=== PATIENT | female | born 2000 | race Caucasian/White ===

== ENCOUNTER 2019-04-11 23:03 | Emergency (ER) | payer OTHER ==
[~2019-04-11] VITALS: Ht 149.9 cm; Wt 59.0 kg
[2019-04-11 23:05] VITALS: BP 130/90
--- NOTE | 2019-04-11 23:08 | NUR ---
TO LOBBY A/W BED AMBULATORY
--- NOTE | 2019-04-11 23:48 | NUR ---
18 Y/O FEMALE PRESENTS WITH LEFT EAR PAIN BEGINNING ON THURSDAY. PT REPORTS SHE HAD A SORE THROAT AND COUGH THAT BEGAN LAST WEEK. EAR PAIN CAUSING MILD HEARING LOSS. NO DRAINAGE NOTED AT EAR. SKIN IN TACT. PT REPORTS MILD HEADACHE, 5/10. DENIES SOB/CP. RESP EVEN AND UNLABORED. LUNG SOUNDS CLEAR IN ALL LOBES. AAOX4. CAP REFILL <3 NO PMH NKA
[2019-04-12 00:06] VITALS: BP 125/82
--- NOTE | 2019-04-12 00:07 | NUR ---
Patient discharged with v/s stable. Written and verbal after care instructions given and explained. Patient alert, oriented and verbalized understanding of instructions. Ambulatory with steady gait. All questions addressed prior to discharge. ID band removed. Patient advised to follow up with PMD. Rx of ibuprofen, promethazine, tramadol, acetic acid otic solution given. Patient educated on indication of medication including possible reaction and side effects. Opportunity to ask questions provided and answered.
== END 2019-04-12 00:06 | disposition home or self-care (01) ==
LOC: MED 23:03
DX: J06.9 Acute upper respiratory infection, unspecified (principal); H66.92 Otitis media, unspecified, left ear
CPT/HCPCS: 99283

== ENCOUNTER 2021-06-27 17:41 | Emergency (ER) | payer OTHER ==
[~2021-06-27] VITALS: Ht 149.9 cm; Wt 65.3 kg
[2021-06-27 17:56] VITALS: BP 115/45
--- NOTE | 2021-06-27 18:05 | NUR ---
PT TAKEN TO X RAY.
[2021-06-27 18:14] VITALS: BP 115/45
--- NOTE | 2021-06-27 18:16 | NUR ---
20YO F C/O WORSENING SORE THROAT X 3 DAYS. PT STATES SHE IS UNABLE TO SWALLOW LIQUIDS OR SOLIDS AND REPORTS PAIN OF 10/10. ALSO COMPLAINS OF HEADACHE. DENIES FEVER, COUGH, RUNNY NOSE, N/V/D. TOOK TYLENOL 2 HOURS AGO. IN ED, VSS. CLEAR BREATH SOUNDS. ERMD MADE AWARE OF PT STATUS. PMH: NONE MEDS: NONE NKA
[2021-06-27] MEDS ORDERED: PENICILLIN G BENZATHINE L-A 1.2 MU/2 ML SYR IM ONE (19:40)
[2021-06-27] MEDS ORDERED: KETOROLAC 60 MG/2 ML VIAL IM ONE (19:40)
[2021-06-27] MEDS ORDERED: IBUP-2213 PO (19:52)
[2021-06-27] MEDS ORDERED: PRED20TA5 PO (19:52)
--- NOTE | 2021-06-27 20:07 | NUR ---
Patient discharged with v/s stable. Written and verbal after care instructions given and explained. Patient alert, oriented and verbalized understanding of instructions. Ambulatory with steady gait. All questions addressed prior to discharge. ID band removed. Patient advised to follow up with PMD. Rx of MOTRIN AND PREDNISONE given. Patient educated on indication of medication including possible reaction and side effects. Opportunity to ask questions provided and answered.
== END 2021-06-27 20:07 | disposition home or self-care (01) ==
LOC: MED 17:41
DX: J02.0 Streptococcal pharyngitis (principal)
CPT/HCPCS: 71045; 96372; 99284; J0561; J1885

== ENCOUNTER 2022-01-15 17:58 | Emergency (ER) | payer OTHER ==
[~2022-01-15] VITALS: Ht 149.9 cm; Wt 63.6 kg
[~2022-01-15 17:58] MED LIST: IBUP-2213 PO; PRED20TA5 PO
[2022-01-15 18:08] VITALS: BP 105/61
--- NOTE | 2022-01-15 18:18 | NUR ---
PT AMB TO BED 8.HANDED ON URINE CUP.
[2022-01-15] MEDS ORDERED: ACETAMINOPHEN 650 MG/20.3 ML UDC PO ONE (18:55)
--- NOTE | 2022-01-15 18:55 | NUR ---
21YO FEMALE PT C/O INCREASED PRESSURED PELVIC PAIN XTODAY. STATES INITIAL PAIN [id number]. PAIN CONSTANT BUT AT MOST ON MOVEMENT OR TOUCH. ABDOMEN FIRM, ROUND AND NON TENDER. LMP 09/13/21 . NOTES "A MOVING BALL" BEFORE URINATING. DENIES TAKING MEDICATION FOR PAIN. N/V/D, CHEST PAIN, SOB, FEVER OR CHILLS. PT AAOX4, RESPIRATIONS EVEN AND UNLABORED. HOB POSITIONED PER COMFORT. HX:DENIES NKA
--- NOTE | 2022-01-15 19:00 | NUR ---
US AT BEDSIDE
--- NOTE | 2022-01-15 19:06 | NUR ---
MD JIMENEZ AT BEDSIDE FOR EVALUATION
[2022-01-15 19:19] LABS: BASOPHILS % (AUTO) 0.4 % (0.0-2.0); EOSINOPHILS # (AUTO) 0.3 K/uL (0-0.4); EOSINOPHILS % (AUTO) 3.1 % (0.0-4.0); HEMATOCRIT 35.2 % (36-48); HEMOGLOBIN 12.2 g/dL (12.0-16.0); LYMPHOCYTES # (AUTO) 2.5 K/uL (2.5-16.5); LYMPHOCYTES % (AUTO) 23.4 % (20.5-51.1); MEAN CORPUSCULAR HEMOGLOBIN 32 pg (27-31); MEAN CORPUSCULAR HGB CONC 35 g/dL (33-37); MEAN CORPUSCULAR VOLUME 90.8 fL (80-94); MONOCYTES # (AUTO) 0.7 K/uL (0.8-1.0); MONOCYTES % (AUTO) 6.7 % (1.7-9.3); NEUTROPHILS # (AUTO) 7.1 K/uL (1.8-7.7); NEUTROPHILS % (AUTO) 66.4 % (42.2-75.2); PLATELET COUNT (AUTO) 288 K/uL (140-450); RED BLOOD CELL COUNT(AUTO) 3.87 MIL/uL (4.20-5.40); WHITE BLOOD COUNT (AUTO) 10.7 K/uL (4.8-10.8)
[2022-01-15 19:39] LABS: APPEARANCE,URINE SL CLOUDY (CLEAR); BILIRUBIN,URINE NEGATIVE (NEGATIVE); BLOOD, URINE NEGATIVE (NEGATIVE); COLOR,URINE YELLOW (YELLOW); LEUKOCYTE ESTERASE ,URINE NEGATIVE (NEGATIVE); NITRITE, URINE NEGATIVE (NEGATIVE); PH,URINE 6.5 (5.0-9.0); UGLUCOSE NEGATIVE (NEGATIVE)
--- NOTE | 2022-01-15 19:40 | NUR ---
REPORT GIVEN TO JORGITO ESCOBAR. TRANSFER OF CARE AT THIS TIME
[2022-01-15 19:42] LABS: CARBON DIOXIDE 27.1 mmol/L (21-32); CREATININE 0.6 mg/dL (0.6-1.3); POTASSIUM 3.1 mmol/L (3.5-5.1); TOTAL BILIRUBIN 0.2 mg/dL (0.0-1.0)
[2022-01-15] MEDS ORDERED: ACET-10509 PO (19:57)
[2022-01-15] MEDS ORDERED: ONDA-188 PO (19:57)
[2022-01-15] MEDS ORDERED: POTASSIUM CHLORIDE 10 MEQ TABER PO ONE (20:00)
[2022-01-15 20:31] VITALS: BP 105/61
--- NOTE | 2022-01-15 20:31 | NUR ---
Patient discharged with v/s stable. Written and verbal after care instructions given and explained. Patient verbalized understanding. Ambulatory with steady gait. All questions addressed prior to discharge. Advised to follow up with PMD.
--- NOTE | 2022-01-15 20:31 | NUR ---
Chart checked and completed.
== END 2022-01-15 20:31 | disposition home or self-care (01) ==
LOC: MED 17:58
DX: O26.892 Other specified pregnancy related conditions, second trimester (principal); R10.30 Lower abdominal pain, unspecified; Z79.899 Other long term (current) drug therapy; Z3A.18 18 weeks gestation of pregnancy
CPT/HCPCS: 36415; 76805; 80053; 81003; 81025; 85025; 86886; 86900; 86901; 87086; 99284; Q0092

== ENCOUNTER 2022-04-18 14:45 | Inpatient (IN) | payer OTHER ==
[~2022-04-18] VITALS: Ht 149.9 cm; Wt 69.4 kg
[2022-04-18] MEDS: LACTATED RINGERS 1,000 ML IV SCH ×2 (06:09→18:24)
[~2022-04-18 14:45] MED LIST changes: +ACET-10509 PO; +ONDA-188 PO
[2022-04-18] MEDS ORDERED: PREN-537 PO (14:59)
--- NOTE | 2022-04-18 16:13 | NUR ---
PATIENT HAS BEEN SCREENED AND CATEGORIZED LOW NUTRITION RISK. PATIENT WILL BE SEEN WITHIN 7 DAYS OF ADMISSION. 04/25/22 REVIEWED BY PEPITO MAGALLAN[address]
[2022-04-18] MEDS ORDERED: LACTATED RINGERS 1,000 ML IV SCH (16:35)
[2022-04-18] MEDS ORDERED: BETAMETH ACET/BETAMETH NA PH 30 MG/5 ML VIAL IM SCH (16:35)
[2022-04-18] MEDS ORDERED: MAG SULF 2000 MG/WATER PREMIX 100 ML IV SCH ×2 (16:35→18:25)
[2022-04-18] MEDS: TERBUTALINE 1 MG/ML VIAL SUBQ SCH ×2 (17:36→19:30)
[2022-04-18 18:33] LABS: BILIRUBIN,URINE NEGATIVE (NEGATIVE); BLOOD, URINE NEGATIVE (NEGATIVE); COLOR,URINE YELLOW (YELLOW); LEUKOCYTE ESTERASE ,URINE 3+ (NEGATIVE); NITRITE, URINE NEGATIVE (NEGATIVE); UGLUCOSE NEGATIVE (NEGATIVE)
[2022-04-18 18:45] LABS: APPEARANCE,URINE CLOUDY (CLEAR)
[2022-04-18] MEDS: MAG SULF 20 GM/H2O PREMIX DRIP 500 ML IV PRN (18:51)
[2022-04-18 22:13] LABS: RBC,URINE 0-5 /HPF (0-5)
[2022-04-18 22:14] LABS: WBC,URINE 20-60 /HPF (0-5)
[2022-04-19] MEDS: LACTATED RINGERS 1,000 ML IV SCH ×2 (04:03→16:42)
[2022-04-19] MEDS: MAG SULF 20 GM/H2O PREMIX DRIP 500 ML IV PRN ×2 (06:28→16:46)
[2022-04-19] MEDS ORDERED: BETAMETH ACET/BETAMETH NA PH 30 MG/5 ML VIAL IM SCH ×2 (17:30)
[2022-04-20] MEDS: MAG SULF 20 GM/H2O PREMIX DRIP 500 ML IV PRN ×2 (04:54→14:03)
[2022-04-20] MEDS: LACTATED RINGERS 1,000 ML IV SCH ×2 (13:24→22:37)
[2022-04-20] MEDS ORDERED: NIFEdipine 10 MG CAPLF PO ONE (18:40)
[2022-04-20] MEDS ORDERED: NIFEdipine 10 MG CAPLF ONE (18:45)
[2022-04-21] MEDS: NIFEdipine 10 MG CAPLF PO SCH ×2 (00:51→06:52)
[2022-04-21] MEDS: LACTATED RINGERS 1,000 ML IV SCH (06:33)
== END 2022-04-21 11:35 | disposition home or self-care (01) | DRG 566 ==
LOC: MLD 14:45 → OBSVTOIN 14:45
PROVIDERS: ADMIT Obstetrics & Gynecology; ATTEND Obstetrics & Gynecology
PROC: 4A1HXCZ Monitoring of Products of Conception, Cardiac Rate, External Approach (ICD-10-PCS; principal; 2022-04-20)
DX: O36.8330 Maternal care for abnormalities of the fetal heart rate or rhythm, third trimester, not applicable or unspecified (principal); O60.03 Preterm labor without delivery, third trimester; Z20.822 Contact with and (suspected) exposure to COVID-19; Z3A.30 30 weeks gestation of pregnancy
CPT/HCPCS: 36415; 76805; 76817; 76819; 81001; 83735; 87086; J0702; J3105; J3475; J7120; Q0092

== ENCOUNTER 2022-06-19 00:01 | Inpatient (IN) | payer OTHER ==
[~2022-06-19] VITALS: Ht 149.9 cm; Wt 74.4 kg
[~2022-06-19 00:01] MED LIST changes: -ACET-10509 PO; -IBUP-2213 PO; -ONDA-188 PO; -PRED20TA5 PO; +PREN-537 PO
[2022-06-19 00:45] VITALS: BP 121/76
[2022-06-19] MEDS ORDERED: LACTATED RINGERS 500 ML IV SCH (01:00)
[2022-06-19] MEDS ORDERED: METHYLERGONOVINE 0.2 MG/ML AMP IM PRN (01:00)
[2022-06-19] MEDS ORDERED: OXYTOCIN 20 UNITS in LACTATED RINGERS 1,000 ML IV SCH (01:05)
[2022-06-19 01:29] LABS: BASOPHILS % (AUTO) 0.5 % (0.0-2.0); EOSINOPHILS # (AUTO) 0.2 K/uL (0-0.4); EOSINOPHILS % (AUTO) 1.8 % (0.0-4.0); HEMATOCRIT 32.5 % (36-48); HEMOGLOBIN 11.2 g/dL (12.0-16.0); LYMPHOCYTES # (AUTO) 2.4 K/uL (2.5-16.5); MEAN CORPUSCULAR HEMOGLOBIN 32 pg (27-31); MEAN CORPUSCULAR HGB CONC 34 g/dL (33-37); MEAN CORPUSCULAR VOLUME 93.1 fL (80-94); MONOCYTES # (AUTO) 0.7 K/uL (0.8-1.0); MONOCYTES % (AUTO) 7.5 % (1.7-9.3); NEUTROPHILS # (AUTO) 5.5 K/uL (1.8-7.7); NEUTROPHILS % (AUTO) 63.2 % (42.2-75.2); PLATELET COUNT (AUTO) 246 K/uL (140-450); RED BLOOD CELL COUNT(AUTO) 3.49 MIL/uL (4.20-5.40); RED CELL DISTRIBUTION WIDTH 13.1 % (11.6-13.7); WHITE BLOOD COUNT (AUTO) 8.8 K/uL (4.8-10.8)
[2022-06-19 01:34] LABS: APPEARANCE,URINE CLEAR (CLEAR); BILIRUBIN,URINE NEGATIVE (NEGATIVE); BLOOD, URINE NEGATIVE (NEGATIVE); COLOR,URINE YELLOW (YELLOW); LEUKOCYTE ESTERASE ,URINE 2+ (NEGATIVE); NITRITE, URINE NEGATIVE (NEGATIVE); UGLUCOSE NEGATIVE (NEGATIVE)
[2022-06-19 02:11] LABS: RBC,URINE 0-5 /HPF (0-5)
[2022-06-19 02:18] LABS: PROTHROMBIN TIME 9.8 secs (10.8-13.4)
[2022-06-19 02:19] LABS: ALBUMIN 2.6 g/dL (3.4-5.0); ANION GAP 14.3 (8-16); CARBON DIOXIDE 21.4 mmol/L (21-32); CREATININE 0.6 mg/dL (0.6-1.3); POTASSIUM 3.7 mmol/L (3.5-5.1); TOTAL BILIRUBIN 0.2 mg/dL (0.0-1.0)
[2022-06-19] MEDS: LACTATED RINGERS 1,000 ML IV SCH ×2 (03:16→09:55)
[2022-06-19] MEDS ORDERED: MORPHINE SULFATE 5 MG/ML VIAL IVP PRN (03:35)
[2022-06-19] MEDS ORDERED: ONDANSETRON 4 MG/2 ML VIAL IVP PRN (03:35)
[2022-06-19] MEDS ORDERED: OXYTOCIN 20 UNITS/LR PREMIX 1,000 ML IV ONE (06:23)
--- NOTE | 2022-06-19 09:13 | NUR ---
PATIENT HAS BEEN SCREENED AND CATEGORIZED LOW NUTRITION RISK. PATIENT WILL BE SEEN WITHIN 7 DAYS OF ADMISSION. 06/26/22 REVIEWED BY PEPITO MAGALLANES [address]
[2022-06-19] MEDS ORDERED: fentaNYL citrate 0.05 MG/ML VIAL ONE (12:16)
[2022-06-19] MEDS ORDERED: ROPIVACAINE 0.2%/NS PREMIX 200 ML EPI ONE (12:16)
[2022-06-20] MEDS ORDERED: OXYTOCIN 10 UNITS/ML VIAL IM PRN (00:25)
[2022-06-20] MEDS ORDERED: IBUPROFEN 800 MG TAB PO PRN (00:25)
[2022-06-20] MEDS ORDERED: TEMAZEPAM 15 MG CAP PO PRN (00:25)
[2022-06-20] MEDS ORDERED: DOCUSATE SOD/SENNA 50/8.6 MG 1 TAB PO PRN (00:25)
[2022-06-20] MEDS ORDERED: MEASLES, MUMPS, AND RUBELLA 1 VIAL SQVAC ONE (00:25)
[2022-06-20] MEDS ORDERED: BENZOCAINE/MENTHOL 20%-0.5% 60 GM CAN TP PRN (00:25)
[2022-06-20] MEDS ORDERED: bisacodyL 5 MG TABEC PO SCH (00:25)
[2022-06-20] MEDS ORDERED: HYDROcodone/APAP 5/325 MG 1 TAB TAB PO PRN (00:25)
[2022-06-20] MEDS ORDERED: METHYLERGONOVINE 0.2 MG/ML AMP IM PRN (00:25)
[2022-06-20] MEDS: oxyCODONE/APAP 5/325 MG 1 TAB TAB PO PRN ×2 (01:27→08:03)
[2022-06-20 05:23] LABS: HEMATOCRIT 28.8 % (36-48)
[2022-06-21] MEDS ORDERED: MEASLES, MUMPS, AND RUBELLA 1 VIAL SQVAC ONE (01:30)
[2022-06-21] MEDS ORDERED: FERROUS SULFATE 325 MG TABEC PO SCH (08:00)
[2022-06-21] MEDS ORDERED: DOCU-299 PO (13:21)
[2022-06-21] MEDS ORDERED: FER325 PO (13:21)
[2022-06-21] MEDS ORDERED: SENN-190 PO (13:36)
[2022-06-21] MEDS ORDERED: IBUP-2217 PO (13:39)
== END 2022-06-21 16:36 | disposition home or self-care (01) | DRG 560 ==
LOC: MLD 00:01 → MFCC 23:20
PROVIDERS: ADMIT Obstetrics & Gynecology; ATTEND Obstetrics & Gynecology
PROC: 10E0XZZ Delivery of Products of Conception, External Approach (ICD-10-PCS; principal; 2022-06-19)
PROC: 3E0R3BZ Introduction of Anesthetic Agent into Spinal Canal, Percutaneous Approach (ICD-10-PCS; 2022-06-19)
PROC: 00HU33Z Insertion of Infusion Device into Spinal Canal, Percutaneous Approach (ICD-10-PCS; 2022-06-19)
DX: O71.82 Other specified trauma to perineum and vulva (principal); Z37.0 Single live birth; D64.9 Anemia, unspecified; O99.02 Anemia complicating childbirth; Z3A.39 39 weeks gestation of pregnancy; Z20.822 Contact with and (suspected) exposure to COVID-19
CPT/HCPCS: 36415; 51702; 59409; 76815; 80053; 81001; 85018; 85025; 85610; 85730; 86592; 86762; 86886; 86900; 86901; 87086; 87340; 90707; 90715; J2590; J2795; J3010; J7120; Q0092

== ENCOUNTER 2023-07-22 18:15 | Emergency (ER) | payer OTHER ==
[~2023-07-22] VITALS: Ht 152.4 cm; Wt 65.3 kg
[~2023-07-22 18:15] MED LIST changes: +IBUP-2217 PO; +SENN-190 PO
[2023-07-22 18:29] VITALS: BP 100/66; PULSE 62; RESP 19; TEMP 96.7; O2SAT 98
[2023-07-22 19:57] LABS: BASOPHILS # (AUTO) 0.1 K/uL (0.00-0.22); BASOPHILS % (AUTO) 0.8 % (0.0-2.0); EOSINOPHILS # (AUTO) 0.4 K/uL (0-0.4); EOSINOPHILS % (AUTO) 3.9 % (0.0-4.0); HEMOGLOBIN 13.3 g/dL (12.0-16.0); LYMPHOCYTES # (AUTO) 3.2 K/uL (2.5-16.5); LYMPHOCYTES % (AUTO) 32.2 % (20.5-51.1); MEAN CORPUSCULAR HEMOGLOBIN 31 pg (27-31); MEAN CORPUSCULAR HGB CONC 35 g/dL (33-37); MEAN CORPUSCULAR VOLUME 88.5 fL (80-94); MONOCYTES # (AUTO) 0.8 K/uL (0.8-1.0); MONOCYTES % (AUTO) 7.6 % (1.7-9.3); NEUTROPHILS # (AUTO) 5.5 K/uL (1.8-7.7); NEUTROPHILS % (AUTO) 55.5 % (42.2-75.2); PLATELET COUNT (AUTO) 298 K/uL (140-450); RED CELL DISTRIBUTION WIDTH 13.5 % (11.6-13.7)
[2023-07-22 20:08] LABS: ANION GAP 10.6 (8-16); CALCIUM 8.8 mg/dL (8.5-10.1); CREATININE 0.6 mg/dL (0.6-1.3); POTASSIUM 3.6 mmol/L (3.5-5.1)
[2023-07-22] MEDS ORDERED: IBUP-2213 PO (20:37)
[2023-07-22] MEDS: KETOROLAC 30 MG/ML VIAL IM ONE (20:43)
[2023-07-22 21:05] VITALS: BP 112/75; PULSE 68; RESP 17; O2SAT 97
== END 2023-07-22 21:05 | disposition home or self-care (01) ==
LOC: MED 18:15
DX: R07.89 Other chest pain (principal); Z79.899 Other long term (current) drug therapy
CPT/HCPCS: 36415; 71045; 80048; 81025; 84484; 85025; 93005; 96372; 99285; J1885; Q0092